=== PATIENT | male | born 1990 | race Caucasian/White ===

== ENCOUNTER 2024-07-06 01:10 | Observation (INO) | payer OTHER ==
[2024-07-06 01:39] LABS: BASOPHILS ABSOLUTE AUTO 0.1 K/mm3 (0.0-0.2); EOSINOPHILS ABSOLUTE AUTO 0.1 K/mm3 (0.0-0.4); EOSINOPHILS PERCENT AUTO 1.6 % (0.0-6.0); HEMATOCRIT 42.5 % (42.0-52.0); HEMOGLOBIN 14.4 gm/dl (14.0-18.0); IMMATURE GRAN ABSOLUTE AUTO 0.01 K/mm3 (0.00-0.05); IMMATURE GRAN PERCENT AUTO 0.1 % (0.0-0.4); LYMPHOCYTES ABSOLUTE AUTO 3.1 K/mm3 (1.0-4.8); LYMPHOCYTES PERCENT AUTO 45.2 % (24.0-44.0); MEAN CORPUSCULAR HEMOGLOBIN 29.9 pg (28.0-32.0); MEAN CORPUSCULAR HGB CONC 33.9 g/dl (32.0-36.0); MEAN CORPUSCULAR VOLUME 88.4 fl (83.0-99.0); MEAN PLATELET VOLUME 9.4 fl (9.4-12.4); MONOCYTES ABSOLUTE AUTO 0.7 K/mm3 (0.0-0.8); NEUTROPHILS ABSOLUTE AUTO 2.9 K/mm3 (1.8-7.7); NEUTROPHILS PERCENT AUTO 42.1 % (41.0-71.0); PLATELET COUNT,PLT 275 K/mm3 (150-400); RED BLOOD CELL COUNT 4.81 M/mm3 (4.52-5.90); WHITE BLOOD CELL COUNT,WBC 6.92 K/mm3 (3.9-11.3)
[2024-07-06] MEDS: Sodium Chloride 0.9% 1,000 ML IV ONE ×2 (01:39→02:51)
[2024-07-06] MEDS: Ondansetron 4 MG/2 ML SDV IVPUSH ONE (01:40)
[2024-07-06] MEDS: HYDROmorphone 1 MG/ML Syringe IVPUSH ONE ×2 (01:41→02:51)
[2024-07-06] MEDS: Pantoprazole 40 MG Vial IVPUSH ONE (01:43)
[2024-07-06] MEDS: methylPREDNISolone Sodium Succinate 125 MG/2 ML SDV IVPUSH ONE (01:43)
[2024-07-06] MEDS: Iopamidol 612 MG/ML 100 ML Bottle IVPUSH ONE (02:00)
[2024-07-06 02:50] LABS: A/G RATIO 1.2 (1-2); ALBUMIN 3.6 g/dl (3.4-5.0); BILIRUBIN TOTAL 0.4 mg/dL (0.2-1.0); CALCIUM 8.7 mg/dL (8.5-10.1); EST CRCL DRUG DOSING (CG) 110.86 mL/min; PROTEIN TOTAL,TP 6.7 g/dl (6.4-8.2)
[2024-07-06] MEDS: Midazolam 1 MG/ML 2 ML SDV IVPUSH ONE (02:52)
[2024-07-06] MEDS ORDERED: HYDROmorphone 0.5 MG/0.5 ML Syringe IVPUSH PRN ×2 (04:02→10:33)
[2024-07-06] MEDS ORDERED: Ondansetron 4 MG/2 ML SDV IVPUSH PRN ×2 (04:03→10:33)
[2024-07-06] MEDS: Sodium Chloride 0.9% 1,000 ML IV SCH (04:28)
[2024-07-06 05:38] LABS: BASOPHILS PERCENT AUTO 0.2 % (0.0-1.0); EOSINOPHILS PERCENT AUTO 0.1 % (0.0-6.0); HEMATOCRIT 39.4 % (42.0-52.0); HEMOGLOBIN 13.4 gm/dl (14.0-18.0); IMMATURE GRAN ABSOLUTE AUTO 0.06 K/mm3 (0.00-0.05); IMMATURE GRAN PERCENT AUTO 0.4 % (0.0-0.4); LYMPHOCYTES ABSOLUTE AUTO 0.7 K/mm3 (1.0-4.8); LYMPHOCYTES PERCENT AUTO 5.2 % (24.0-44.0); MEAN CORPUSCULAR HEMOGLOBIN 29.8 pg (28.0-32.0); MEAN CORPUSCULAR VOLUME 87.8 fl (83.0-99.0); MEAN PLATELET VOLUME 9.7 fl (9.4-12.4); MONOCYTES ABSOLUTE AUTO 0.2 K/mm3 (0.0-0.8); MONOCYTES PERCENT AUTO 1.1 % (0.0-8.0); NEUTROPHILS ABSOLUTE AUTO 12.5 K/mm3 (1.8-7.7); PLATELET COUNT,PLT 268 K/mm3 (150-400); RED BLOOD CELL COUNT 4.49 M/mm3 (4.52-5.90); WHITE BLOOD CELL COUNT,WBC 13.47 K/mm3 (3.9-11.3)
[2024-07-06 05:46] LABS: APPEARANCE,URINE CLEAR (Clear); BILIRUBIN,URINE NEGATIVE (Negative); COLOR,URINE YELLOW (Yellow); GLUCOSE,URINE NEGATIVE (Negative); KETONES,URINE NEGATIVE (Negative); LEUKOCYTE ESTERASE,URINE NEGATIVE (Negative); NITRITE,URINE NEGATIVE (Negative); OCCULT BLOOD,URINE NEGATIVE (Negative); PH,URINE 6.5 (5.0-8.0); PROTEIN,URINE NEGATIVE (Negative); UROBILINOGEN,URINE 0.2 (0.2-1.0)
[2024-07-06 05:50] LABS: ANION GAP 9.1 (5-15); CALCIUM 8.1 mg/dL (8.5-10.1); EST CRCL DRUG DOSING (CG) 110.86 mL/min; POTASSIUM,K 4.1 mEq/L (3.5-5.1)
[2024-07-06 06:05] LABS: BARBITURATE SCREEN,URINE NEGATIVE (CUTOFF=200); BENZODIAZEPINES SCREEN,URINE NEGATIVE (CUTOFF=150); BUPRENORPHINE SCREEN,URINE NEGATIVE (CUTOFF=10); METHADONE SCREEN, URINE NEGATIVE (CUT0FF=200); METHAMPHETAMINES SCREEN, URINE NEGATIVE (CUTOFF=500); OXYCODONE SCREEN,URINE NEGATIVE (CUT0FF=100); THC SCREEN,URINE 20 NG/ML PRESUMPTIVE POSITIVE (CUTOFF=50)
[2024-07-06 06:08] LABS: AMPHETAMINES SCREEN, URINE NEGATIVE (CUTOFF=500)
[2024-07-06 06:39] LABS: SLIDE REVIEW NORMAL SMEAR
[2024-07-06] MEDS: Benzocaine 20% Topical Spray UD MUCMEM ONE (08:02)
[2024-07-06] MEDS: ceFAZolin 1 GM Vial IVPUSH ONE (08:10)
[2024-07-06] MEDS ORDERED: propofoL 500 MG/50 ML 100 ML ONE (09:53)
[2024-07-06] MEDS ORDERED: Ketamine 200 MG/20 ML MDV ONE (09:53)
[2024-07-06] MEDS ORDERED: Propofol 200 MG/20 ML SDV ONE ×2 (09:53→12:07)
[2024-07-06] MEDS ORDERED: Midazolam 1 MG/ML 2 ML SDV ONE (09:53)
[2024-07-06] MEDS ORDERED: fentaNYL 250 MCG/5 ML SDV ONE (09:53)
[2024-07-06] MEDS: Heparin Sodium 5,000 Units/ML Vial SUBCUT ONE (10:17)
[2024-07-06] MEDS ORDERED: Glycopyrrolate 0.2 MG/ML 2 ML SDV ONE (10:24)
[2024-07-06] MEDS ORDERED: Dexamethasone 4 MG/ML 5 ML MDV ONE (10:24)
[2024-07-06] MEDS ORDERED: Sugammadex Sodium 200 MG/2 ML VIAL IV ONE (10:24)
[2024-07-06] MEDS ORDERED: Sodium Chloride 0.9% 100 ML ONE (10:24)
[2024-07-06] MEDS ORDERED: Ondansetron 4 MG/2 ML SDV ONE (10:24)
[2024-07-06] MEDS ORDERED: Rocuronium 50 MG/5 ML Vial ONE ×2 (10:24→11:28)
[2024-07-06] MEDS ORDERED: dexmedeTOMIDine HCl 200 MCG/2 ML SDV ONE (10:24)
[2024-07-06] MEDS ORDERED: Ketorolac 30 MG/ML SDV ONE (10:24)
[2024-07-06] MEDS ORDERED: Lidocaine 1% 5 ML VIAL ONE (10:24)
[2024-07-06] MEDS ORDERED: Sodium Chloride 0.9% 10 ML Syringe FLUSH PRN (10:33)
[2024-07-06] MEDS ORDERED: Lidocaine 1% 10 ML MDV ONE (10:45)
[2024-07-06] MEDS ORDERED: Lactated Ringers 1,000 ML IV SCH (10:45)
[2024-07-06] MEDS ORDERED: Bupivacaine 0.5% 10 ML SDV ONE (10:46)
[2024-07-06] MEDS ORDERED: EPINEPHrine 1 MG/ML SDV ONE (10:46)
[2024-07-06] MEDS ORDERED: Lactated Ringers 1,000 ML ONE ×2 (10:52→10:53)
[2024-07-06] MEDS ORDERED: Esmolol 100 MG/10 ML SDV ONE (10:52)
[2024-07-06] MEDS ORDERED: Metoprolol Tartrate 5 MG/5 ML SDV ONE (10:52)
[2024-07-06] MEDS: Albuterol/Ipratropium 3.0-0.5 MG/3 ML Neb Soln NEB ONE (11:05)
[2024-07-06] MEDS: Albuterol/Ipratropium 3.0-0.5 MG/3 ML Neb Soln ONE (11:10)
[2024-07-06] MEDS ORDERED: propofoL 500 MG/50 ML 50 ML ONE (11:28)
[2024-07-06] MEDS ORDERED: Morphine 4 MG/ML Syringe IVPUSH PRN (13:55)
[2024-07-06] MEDS: fentaNYL 100 MCG/2 ML SDV IVPUSH PRN (14:29)
[2024-07-06] MEDS: Ketorolac 30 MG/ML SDV IVPUSH SCH (15:46)
[2024-07-06] MEDS: Heparin Sodium 5,000 Units/ML Vial SUBCUT SCH ×2 (17:34→19:46)
[2024-07-06] MEDS: Sodium Chloride 0.9% 10 ML Syringe FLUSH SCH (21:06)
[2024-07-07] MEDS: Lactated Ringers 1,000 ML IV SCH (03:15)
[2024-07-07] MEDS: Acetaminophen/oxyCODONE 325-5 MG Tab PO PRN (04:16)
[2024-07-07] MEDS: Acetaminophen 325 MG Tab PO PRN (09:06)
== END 2024-07-07 10:53 | disposition home or self-care (01) ==
LOC: JD.ED 01:10 → JD.MS 02:41
PROVIDERS: ADMIT Surgery; ATTEND Surgery
DX: K42.0 Umbilical hernia with obstruction, without gangrene (principal); F17.210 Nicotine dependence, cigarettes, uncomplicated
CPT/HCPCS: 36415; 49594; 74177; 80048; 80053; 80306; 81003; 82550; 83605; 83690; 83735; 85025; 94640; 94761; 96361; 96372; 96374; 96375; 96376; 99285; A9270; C1781; G0378; J0171; J0665; J0690; J1100; J1171; J1596; J1644; J1885; J2003; J2250; J2405; J2470; J2704; J2919; J3010; J3490; J7030; J7120; J7620; Q9967; J1805

== ENCOUNTER 2024-07-25 10:38 | Emergency (ER) | payer OTHER ==
[2024-07-25] MEDS ORDERED: Sodium Chloride 0.9% 10 ML Syringe FLUSH PRN (11:10)
[2024-07-25 11:35] LABS: BASOPHILS ABSOLUTE AUTO 0.1 K/mm3 (0.0-0.2); BASOPHILS PERCENT AUTO 1.1 % (0.0-1.0); EOSINOPHILS ABSOLUTE AUTO 0.3 K/mm3 (0.0-0.4); EOSINOPHILS PERCENT AUTO 5.6 % (0.0-6.0); HEMATOCRIT 43.7 % (42.0-52.0); HEMOGLOBIN 14.6 gm/dl (14.0-18.0); IMMATURE GRAN ABSOLUTE AUTO 0.02 K/mm3 (0.00-0.05); IMMATURE GRAN PERCENT AUTO 0.3 % (0.0-0.4); LYMPHOCYTES ABSOLUTE AUTO 1.7 K/mm3 (1.0-4.8); LYMPHOCYTES PERCENT AUTO 27.9 % (24.0-44.0); MEAN CORPUSCULAR HEMOGLOBIN 30.4 pg (28.0-32.0); MEAN CORPUSCULAR HGB CONC 33.4 g/dl (32.0-36.0); MEAN PLATELET VOLUME 9.1 fl (9.4-12.4); MONOCYTES ABSOLUTE AUTO 0.4 K/mm3 (0.0-0.8); MONOCYTES PERCENT AUTO 7.1 % (0.0-8.0); NEUTROPHILS ABSOLUTE AUTO 3.5 K/mm3 (1.8-7.7); PLATELET COUNT,PLT 326 K/mm3 (150-400); RED BLOOD CELL COUNT 4.81 M/mm3 (4.52-5.90); WHITE BLOOD CELL COUNT,WBC 6.09 K/mm3 (3.9-11.3)
[2024-07-25] MEDS: Iopamidol 612 MG/ML 100 ML Bottle IVPUSH ONE (11:36)
[2024-07-25] MEDS: Sodium Chloride 0.9% 10 ML Syringe FLUSH ONE (11:36)
[2024-07-25 11:38] LABS: APPEARANCE,URINE CLEAR (Clear); BILIRUBIN,URINE NEGATIVE (Negative); COLOR,URINE YELLOW (Yellow); GLUCOSE,URINE NEGATIVE (Negative); KETONES,URINE NEGATIVE (Negative); LEUKOCYTE ESTERASE,URINE NEGATIVE (Negative); NITRITE,URINE NEGATIVE (Negative); OCCULT BLOOD,URINE NEGATIVE (Negative); PH,URINE 6.5 (5.0-8.0); PROTEIN,URINE NEGATIVE (Negative); UROBILINOGEN,URINE 0.2 (0.2-1.0)
[2024-07-25 11:43] LABS: MEAN CORPUSCULAR VOLUME 90.9 fl (83.0-99.0)
[2024-07-25 11:57] LABS: A/G RATIO 1.1 (1-2); ALBUMIN 3.4 g/dl (3.4-5.0); ANION GAP 9.3 (5-15); BILIRUBIN TOTAL 0.5 mg/dL (0.2-1.0); C-REACTIVE PROTEIN 0.41 mg/dL (<0.30); CALCIUM 8.9 mg/dL (8.5-10.1); EST CRCL DRUG DOSING (CG) 110.86 mL/min; POTASSIUM,K 4.3 mEq/L (3.5-5.1); PROTEIN TOTAL,TP 6.5 g/dl (6.4-8.2)
[2024-07-25 12:03] LABS: LACTIC ACID 0.9 mmol/L (0.4-2.0)
== END 2024-07-25 13:35 | disposition home or self-care (01) ==
LOC: JD.ED 10:38
DX: T88.8XXA Other specified complications of surgical and medical care, not elsewhere classified, initial encounter (principal); Z98.890 Other specified postprocedural states; Z79.899 Other long term (current) drug therapy; F17.210 Nicotine dependence, cigarettes, uncomplicated
CPT/HCPCS: 36415; 74177; 80053; 81003; 83605; 85025; 86140; 99284; Q9967